=== PATIENT | female | born 1935 | race Caucasian/White ===

== ENCOUNTER 2021-03-14 13:39 | Emergency (ER) | payer OTHER ==
[~2021-03-14] VITALS: Ht 160 cm; Wt 65.8 kg
[2021-03-14] MEDS ORDERED: PROAIR HFA8.5 GM INH (13:52)
[2021-03-14] MEDS ORDERED: LEVO-T50 MCG PO (13:52)
[2021-03-14] MEDS ORDERED: KEFLEX125 MG/5 M PO (13:52)
[2021-03-14] MEDS ORDERED: WARFARIN SODIUM3 MG PO (13:52)
[2021-03-14 14:09] LABS: ABSOLUTE EOSINOPHILS 0.4 thou/uL (0.0-0.7); ABSOLUTE LYMPHOCYTES 1.5 thou/uL (0.8-5.3); ABSOLUTE MONOCYTES 0.5 thou/uL (0.0-1.2); ABSOLUTE NEUTROPHILS 3.1 thou/uL (1.6-8.1); BASOPHILS 0.9 %; EOSINOPHILS 6.5 %; HEMATOCRIT 39.6 % (37.0-47.0); HEMOGLOBIN 13.4 gm/dL (12.0-15.0); LYMPHOCYTES 27.6 %; MCH 31.7 pg (26.0-34.0); MCV 93.3 fL (80.0-100.0); MONOCYTES 8.7 %; MPV 7.5 fl. (7.2-11.1); NUCLEATED RBCS 0 /100WBC; PLATELET COUNT* 225 thou/uL (150-400); POLYS 56.3 %; RBC 4.24 mil/uL (4.20-5.00); RDW-CV 13.3 % (10.5-14.5); WBC 5.5 thou/uL (4.0-11.0)
[2021-03-14 14:20] LABS: APTT 35.6 Seconds (25.0-31.3); PROTIME 20.1 Seconds (9.20-11.50)
[2021-03-14 14:30] VITALS: BP 140/71
== END 2021-03-14 14:35 | disposition home or self-care (01) ==
LOC: M.ERS 13:39
PROVIDERS: Family Medicine
DX: R04.0 Epistaxis (principal); J44.9 Chronic obstructive pulmonary disease, unspecified; Z90.710 Acquired absence of both cervix and uterus